=== PATIENT | male | born 1965 | race African-American/Black ===

== ENCOUNTER 2017-01-22 01:09 | Emergency (ER) | payer OTHER ==
[~2017-01-22] VITALS: Ht 185.4 cm; Wt 69.8 kg
[~2017-01-22 01:09] MED LIST: ABILIFY30 MG PO; CITALOPRAM HBR20 MG PO; KLONOPIN1 MG PO; MIRTAZAPINE15 MG PO; VISTARIL25 MG PO
[2017-01-22 01:13] VITALS: BP 125/87
[2017-01-22] MEDS ORDERED: NORCO 5/3251 TABLET PO (02:10)
[2017-01-22] MEDS ORDERED: MOTRIN600 MG PO (02:10)
== END 2017-01-22 02:49 | disposition home or self-care (01) ==
LOC: EME 01:09
DX: S22.32XA Fracture of one rib, left side, initial encounter for closed fracture (principal); W19.XXXA Unspecified fall, initial encounter; Y93.61 Activity, american tackle football
CPT/HCPCS: 71101; 99281; 99283

== ENCOUNTER 2017-11-18 10:21 | Emergency (ER) | payer OTHER ==
[~2017-11-18] VITALS: Ht 182.9 cm; Wt 69.2 kg
[~2017-11-18 10:21] MED LIST changes: +MOTRIN600 MG PO; +NORCO 5/3251 TABLET PO
[2017-11-18] MEDS ORDERED: CEPACOL SORE T1 EAC9 MM (10:57)
[2017-11-18] MEDS ORDERED: TESSALON200 MG PO (10:57)
[2017-11-18] MEDS ORDERED: MOTRIN600 MG PO (10:57)
[2017-11-18 11:16] VITALS: BP 132/78
== END 2017-11-18 11:26 | disposition home or self-care (01) ==
LOC: EME 10:21
DX: B34.9 Viral infection, unspecified (principal); H92.01 Otalgia, right ear; R05 Cough; J02.9 Acute pharyngitis, unspecified; I25.2 Old myocardial infarction; Z85.72 Personal history of non-Hodgkin lymphomas
CPT/HCPCS: 99281; 99284